=== PATIENT | female | born 1960 | race Caucasian/White ===

== ENCOUNTER 2017-12-10 12:33 | Emergency (ER) | payer MEDICARE, MEDICAID ==
[~2017-12-10] VITALS: Ht 162.6 cm; Wt 112.9 kg
[~2017-12-10 12:33] MED LIST: CEFD300C3 PO; FURO-61 PO; IPRA14.7 INH; LANS30CA56 PO; LEVO175T7 PO; LISI-643 PO; SULF1TAB49 PO
[2017-12-10 12:40] VITALS: BP 151/78
[2017-12-10 13:02] LABS: BASOPHILS # (AUTO) 0.1 X10'3 (0-0.2); BASOPHILS % (AUTO) 0.9 % (0-1); EOSINOPHILS # (AUTO) 0.2 X10'3 (0-0.9); HEMATOCRIT 40.8 % (35.0-45.0); HEMOGLOBIN 14.1 g/dl (12.0-16.0); LYMPHOCYTES # (AUTO) 1.6 X10'3 (1.1-4.8); LYMPHOCYTES % (AUTO) 25.3 % (21-51); MEAN CORPUSCULAR HEMOGLOBIN 30.1 PG (27.0-31.0); MEAN CORPUSCULAR HGB CONC 34.6 % (33.0-36.5); MEAN PLATELET VOLUME 7.8 FL (7.4-10.4); MONOCYTES # (AUTO) 0.3 X10'3 (0-0.9); MONOCYTES % (AUTO) 5.4 % (2-12); NEUTROPHILS # (AUTO) 4.2 X10'3 (1.8-7.7); NEUTROPHILS % (AUTO) 65.4 % (42-75); PLATELET COUNT 246 X10'3 (140-440); RED BLOOD COUNT 4.69 X10'6 (4.20-5.60); RED CELL DISTRIBUTION WIDTH 13.6 % (11.5-14.5); WHITE BLOOD COUNT 6.4 X10'3 (4.5-11.0)
[2017-12-10 13:12] LABS: PARTIAL THROMBOPLASTIN TIME 31 SECONDS (22-32)
[2017-12-10 13:19] LABS: ALANINE AMINOTRANSFERASE 21 U/L (12-78); ALBUMIN 4.1 G/DL (3.4-5.0); ALBUMIN/GLOBULIN RATIO 1.1 (1.1-1.5); ALKALINE PHOSPHATASE 57 IU/L (46-116); ANION GAP 8 (8-16); ASPARTATE AMINO TRANSFERASE 5 U/L (10-37); BILIRUBIN,TOTAL 0.3 MG/DL (0.1-1.0); BLOOD UREA NITROGEN 16 MG/DL (7-18); CALCIUM 9.7 MG/DL (8.5-10.1); CHLORIDE 103 MMOL/L (99-107); GLUCOSE 91 MG/DL (70-104); POTASSIUM 3.9 MMOL/L (3.5-5.1); SODIUM 141 MMOL/L (135-145); TOTAL CARBON DIOXIDE 30.2 MMOL/L (24-32); eGFR > 90 ML/MIN
== END 2017-12-10 14:59 | disposition left against medical advice (07) ==
LOC: ER 12:34
DX: R07.9 Chest pain, unspecified (principal); Z53.21 Procedure and treatment not carried out due to patient leaving prior to being seen by health care provider
CPT/HCPCS: 36415; 71045; 80053; 84484; 85025; 85610; 85730; 93005

== ENCOUNTER 2018-04-02 05:47 | Inpatient (IN) | payer MEDICARE, MEDICAID ==
[2018-03-28 10:45] LABS: BASOPHILS % (AUTO) 0.7 % (0-1); EOSINOPHILS # (AUTO) 0.2 X10'3 (0-0.9); EOSINOPHILS % (AUTO) 2.7 % (0-6); LYMPHOCYTES # (AUTO) 1.7 X10'3 (1.1-4.8); LYMPHOCYTES % (AUTO) 29.1 % (21-51); MEAN CORPUSCULAR HEMOGLOBIN 30.4 PG (27.0-31.0); MEAN CORPUSCULAR HGB CONC 34.3 % (33.0-36.5); MEAN CORPUSCULAR VOLUME 88.6 FL (78-98); MEAN PLATELET VOLUME 7.4 FL (7.4-10.4); MONOCYTES # (AUTO) 0.3 X10'3 (0-0.9); MONOCYTES % (AUTO) 5.7 % (2-12); NEUTROPHILS # (AUTO) 3.5 X10'3 (1.8-7.7); NEUTROPHILS % (AUTO) 61.8 % (42-75); PRE OP HEMATOCRIT 41.4 % (35.0-45.0); PRE OP HEMOGLOBIN 14.2 g/dL (12.0-16.0); PRE OP PLATELET COUNT 262 X10'3 (140-440); RED BLOOD COUNT 4.67 X10'6 (4.20-5.60); RED CELL DISTRIBUTION WIDTH 14.1 % (11.5-14.5)
[2018-03-28 10:49] LABS: COLOR,URINE Yellow (Yellow); GLUCOSE, URINE Negative (Neg); KETONES,URINE Negative (Neg); LEUKOCYTE ESTERASE ,URINE Negative (Neg); NITRITES, URINE Positive (Neg); OCCULT BLOOD,URINE Negative (Neg); PH,URINE 6.5 (4.8-8.0); PROTEIN,URINE Negative (Neg)
[2018-03-28 10:58] LABS: UA COLLECTION TYPE CLN CATCH MIDSTREAM
[2018-03-28 10:59] LABS: ALBUMIN 3.8 G/DL (3.4-5.0); ALBUMIN/GLOBULIN RATIO 1.1 (1.1-1.5); ALKALINE PHOSPHATASE 51 IU/L (46-116); BLOOD UREA NITROGEN 13 MG/DL (7-18); BUN/CREATININE RATIO 27.1 (6.6-38.0); CALCIUM 9.2 MG/DL (8.5-10.1); CHLORIDE 104 MMOL/L (99-107); CREATININE 0.48 MG/DL (0.40-0.90); PRE OP ALT 24 U/L (30-65); PRE OP ANION GAP 5 (8-16); PRE OP AST 16 U/L (10-37); PRE OP BILIRUB, TOTAL 0.3 MG/DL (0.0-1.0); PRE OP GLUCOSE 95 MG/DL (70-104); PRE OP SODIUM 142 MMOL/L (135-145); TOTAL CARBON DIOXIDE 32.8 MMOL/L (24-32); TOTAL PROTEIN 7.4 G/DL (6.4-8.2); eGFR > 90 ML/MIN
[2018-03-28 11:00] LABS: BACTERIA,URINE 4+ /HPF (Neg); CLARITY,URINE CLOUDY (Clear); MUCUS STRANDS MODERATE /LPF (Neg); RBC,URINE 0-2 /HPF (0-2); SQUAMOUS EPITHELIAL CELL,UR MODERATE /LPF (FEW); WBC,URINE 0-4 /HPF (0-4)
[2018-04-02] VITALS (29 sets, daily range): BP systolic 99–172; BP diastolic 54–104
[~2018-04-02] VITALS: Ht 162.6 cm; Wt 111.2 kg
[~2018-04-02 05:47] MED LIST changes: -CEFD300C3 PO; -IPRA14.7 INH; +LANS30CA37 PO; -LANS30CA56 PO; -SULF1TAB49 PO; +albuterol 2.5 MG/3 ML nebule NEB ONE; +ceFAZolin inj. 2,000 MG in normal saline 100ml IV soln 100 ML IV ONE; +famotidine 20mg tablet PO ONE
[2018-04-02] MEDS ORDERED: LISI-642 PO (06:19)
[2018-04-02] MEDS: ringers solution, lacted 1,000 ML IV SCH ×2 (06:31→16:09)
[2018-04-02] MEDS ORDERED: LIDOcaine 1% (10mg/ml) 2ml vial ONE (06:35)
[2018-04-02] MEDS ORDERED: iohexol 300 MG/1 ML 50ml polymer ONE (06:39)
[2018-04-02] MEDS ORDERED: rocuronium 10mg/ml inj IV ONE ×2 (06:54)
[2018-04-02] MEDS ORDERED: propofol inj 20 ML IV ONE ×2 (06:54→07:21)
[2018-04-02] MEDS ORDERED: ePHEDrine 50MG/ML INJ. ONE (06:56)
[2018-04-02] MEDS ORDERED: neostigmine methylsulfate 1 MG/ML 10ml vial ONE (07:15)
[2018-04-02] MEDS ORDERED: glycopyrrolate 0.2mg/ml inj ONE (07:15)
[2018-04-02] MEDS ORDERED: ondansetron/PF 4mg/2ml inj ONE (07:15)
[2018-04-02] MEDS ORDERED: sevoflurane 250ml liquid IH ONE (07:15)
[2018-04-02] MEDS ORDERED: fentaNYL /PF 50mcg/ml 5ml ampule ONE (07:17)
[2018-04-02] MEDS ORDERED: midazolam 2 mg/2 ml injection ONE (07:17)
[2018-04-02] MEDS ORDERED: dexamethasone sod phosphate 4mg/ml inj. ONE (07:24)
[2018-04-02] MEDS ORDERED: LIDOcaine 2% (20mg/ml) 5ml vial ONE (07:24)
[2018-04-02] MEDS: ceFOXitin 1 GM ADDVANTAGE BAG 1,000 MG in normal saline 100ml IV soln 100 ML IV SCH ×2 (08:00→19:17)
[2018-04-02] MEDS ORDERED: CADD PCA waste documentation MC PRN (08:00)
[2018-04-02] MEDS ORDERED: naloxone 0.4 mg/ml inj IV PRN (08:00)
[2018-04-02] MEDS: enoxaparin 40mg/0.4ml syringe SQ SCH (08:00)
[2018-04-02] MEDS ORDERED: hydrALAZINE 20mg/ml inj. IV PRN (08:10)
[2018-04-02] MEDS ORDERED: ondansetron/PF 4mg/2ml inj IV PRN (08:10)
[2018-04-02] MEDS ORDERED: HYDROmorphone inj. 0.5 MG/0.5 ML DISP.SYRIN IV PRN ×2 (08:10)
[2018-04-02] MEDS ORDERED: fentaNYL/PF 50MCG/1 ML 2ML syringe IV PRN (08:10)
[2018-04-02] MEDS ORDERED: proCHLORperazine 10 MG/2 ml inj IV PRN (08:10)
[2018-04-02] MEDS ORDERED: proMETHazine 25mg rectal suppository RC PRN (08:10)
[2018-04-02] MEDS ORDERED: labetalol 20mg/4ml (5mg/ml) syringe IV PRN (08:10)
[2018-04-02] MEDS ORDERED: ringers solution, lacted 1,000 ML IV ONE (08:10)
[2018-04-02] MEDS ORDERED: ceFOXitin 1000 MG inj ONE (08:23)
[2018-04-02] MEDS ORDERED: HYDROmorphone 1 mg/ml syringe ONE (08:34)
[2018-04-02] MEDS ORDERED: BUPIVAcaine/PF 2.5mg/ml (0.25%) 10ml vial IJ ONE (08:37)
[2018-04-02] MEDS: fentaNYL/PF 50MCG/1 ML 2ML syringe IV PRN ×2 (09:38→09:44)
[2018-04-02] MEDS ORDERED: pantoprazole 40mg Tablet.DR PO PRN (09:40)
[2018-04-02] MEDS ORDERED: acetaminophen 325mg tablet PO PRN (11:30)
[2018-04-02] MEDS ORDERED: acetaminophen 1,000mg/100ml IV 100 ML IV ONE (11:40)
[2018-04-02] MEDS ORDERED: traMADol 50MG tablet PO PRN (17:30)
[2018-04-02] MEDS: traMADol 50MG tablet PO PRN (19:17)
[2018-04-02] MEDS: diphenhydrAMINE 25mg capsule PO PRN (19:19)
[2018-04-03] MEDS: traMADol 50MG tablet PO PRN ×2 (00:47→13:25)
[2018-04-03] MEDS: acetaminophen 325mg tablet PO PRN ×3 (01:07→17:36)
[2018-04-03] MEDS: ondansetron/PF 4mg/2ml inj IV PRN ×2 (01:11→13:04)
[2018-04-03 04:00] VITALS: BP 157/75
[2018-04-03] MEDS: enoxaparin 40mg/0.4ml syringe SQ SCH (08:00)
[2018-04-03] MEDS: furosemide 20MG tablet PO SCH ×2 (08:00→10:30)
[2018-04-03] MEDS ORDERED: lisinopril 10 MG tablet PO SCH (08:00)
[2018-04-03] MEDS: levoTHYROXINE 175mcg tablet PO SCH (08:11)
[2018-04-03 08:18] VITALS: BP 144/77
[2018-04-03] MEDS ORDERED: ZESTRIL PO SCH ×2 (10:49)
[2018-04-03] MEDS: ZESTRIL PO SCH (11:08)
[2018-04-03 11:38] VITALS: BP 180/78
[2018-04-03 11:44] VITALS: BP 126/69
[2018-04-03] MEDS: diphenhydrAMINE 25mg capsule PO PRN (13:25)
[2018-04-03] MEDS: ringers solution, lacted 1,000 ML IV SCH (19:02)
[2018-04-03 20:00] VITALS: BP 130/61
[2018-04-04] VITALS: BP 131/64
[2018-04-04] MEDS: acetaminophen 325mg tablet PO PRN ×3 (01:21→13:58)
[2018-04-04] MEDS: diphenhydrAMINE 25mg capsule PO PRN ×2 (01:21→13:58)
[2018-04-04 06:56] VITALS: BP 146/62
[2018-04-04] MEDS: levoTHYROXINE 175mcg tablet PO SCH (08:01)
[2018-04-04] MEDS: furosemide 20MG tablet PO SCH (08:02)
[2018-04-04] MEDS: ZESTRIL PO SCH (08:03)
[2018-04-04] MEDS: enoxaparin 40mg/0.4ml syringe SQ SCH (08:03)
[2018-04-04] MEDS: ringers solution, lacted 1,000 ML IV SCH (11:14)
[2018-04-04 11:33] VITALS: BP 161/77
[2018-04-04] MEDS: ondansetron/PF 4mg/2ml inj IV PRN (17:16)
== END 2018-04-04 19:14 | disposition home or self-care (01) | DRG 330 ==
LOC: PAS IN 05:47 → EDSTATUS 07:30 → SUR 3N 08:57 → EDSTATUS 10:15 → SUR 3N 04-03 11:31
PROVIDERS: ADMIT Surgery; ATTEND Surgery
PROC: 0T788DZ Dilation of Bilateral Ureters with Intraluminal Device, Via Natural or Artificial Opening Endoscopic (ICD-10-PCS; 2018-04-02)
PROC: 0T9B80Z Drainage of Bladder with Drainage Device, Via Natural or Artificial Opening Endoscopic (ICD-10-PCS; 2018-04-02)
PROC: BT161ZZ Fluoroscopy of Right Ureter using Low Osmolar Contrast (ICD-10-PCS; 2018-04-02)
PROC: BT171ZZ Fluoroscopy of Left Ureter using Low Osmolar Contrast (ICD-10-PCS; 2018-04-02)
PROC: 0DBN4ZZ Excision of Sigmoid Colon, Percutaneous Endoscopic Approach (ICD-10-PCS; principal; 2018-04-02 07:15)
PROC: 0WQF4ZZ Repair Abdominal Wall, Percutaneous Endoscopic Approach (ICD-10-PCS; 2018-04-02 07:15)
DX: K57.32 Diverticulitis of large intestine without perforation or abscess without bleeding (principal); Z68.41 Body mass index [BMI] 40.0-44.9, adult; I11.0 Hypertensive heart disease with heart failure; I50.9 Heart failure, unspecified; E03.9 Hypothyroidism, unspecified; G47.30 Sleep apnea, unspecified; K42.9 Umbilical hernia without obstruction or gangrene; K21.9 Gastro-esophageal reflux disease without esophagitis; N73.6 Female pelvic peritoneal adhesions (postinfective); Z88.5 Allergy status to narcotic agent; Z88.8 Allergy status to other drugs, medicaments and biological substances; Z90.49 Acquired absence of other specified parts of digestive tract; E66.9 Obesity, unspecified
CPT/HCPCS: 36415; 71046; 76000; 80053; 81001; 85025; 86885; 86900; 86901; 86920; 87070; 87077; 87088; 87186; 88307; A4402; A6255; A6449; A7000; C1758; C1769; J0131; J0690; J0694; J1100; J1170; J1650; J2001; J2250; J2405; J2704; J2710; J3010; J3490; J7030; J7120; Q0163; Q9967

== ENCOUNTER 2018-06-18 07:24 | Emergency (ER) | payer MEDICARE, MEDICAID ==
[~2018-06-18] VITALS: Ht 565.3 cm; Wt 107.3 kg
[~2018-06-18 07:24] MED LIST changes: +LISI-642 PO; -LISI-643 PO; -albuterol 2.5 MG/3 ML nebule NEB ONE; -ceFAZolin inj. 2,000 MG in normal saline 100ml IV soln 100 ML IV ONE; -famotidine 20mg tablet PO ONE
[2018-06-18] MEDS ORDERED: acetaminophen 325mg tablet PO ONE (07:45)
[2018-06-18] MEDS ORDERED: pantoprazole 40 MG vial IV ONE (07:45)
[2018-06-18] MEDS ORDERED: dicyclomine 10 MG capsule PO ONE (07:45)
[2018-06-18] MEDS ORDERED: ondansetron/PF 4mg/2ml inj IV ONE (07:45)
[2018-06-18] MEDS ORDERED: normal saline 1000ML IV soln IVB ONE ×2 (07:45)
[2018-06-18] MEDS ORDERED: loperamide 2mg capsule PO ONE (07:45)
[2018-06-18] MEDS ORDERED: LOPE2CAP PO (07:46)
[2018-06-18] MEDS ORDERED: DICY10CA88 PO (07:46)
[2018-06-18] MEDS ORDERED: PANT-47 PO (07:46)
[2018-06-18] MEDS ORDERED: ONDA8TAB9 PO (07:46)
[2018-06-18 08:56] VITALS: BP 128/70
== END 2018-06-18 08:57 | disposition home or self-care (01) ==
LOC: ER 07:24
DX: R19.7 Diarrhea, unspecified (principal); R10.84 Generalized abdominal pain; K21.9 Gastro-esophageal reflux disease without esophagitis; Z90.49 Acquired absence of other specified parts of digestive tract; Z88.5 Allergy status to narcotic agent; Z88.1 Allergy status to other antibiotic agents; Z88.8 Allergy status to other drugs, medicaments and biological substances; Z79.899 Other long term (current) drug therapy
CPT/HCPCS: 96361; 96374; 96375; 99285; C9113; J2405; J7030; 99284

== ENCOUNTER 2020-11-11 18:56 | Emergency (ER) | payer MEDICARE, MEDICAID ==
[~2020-11-11] VITALS: Ht 162.6 cm; Wt 110.9 kg
[~2020-11-11 18:56] MED LIST changes: +IPRA4AER IH; -LANS30CA37 PO; -LISI-642 PO; +LISI1TAB32 PO
[2020-11-11 19:24] LABS: BASOPHILS # (AUTO) 0.1 X10'3 (0-0.2); BASOPHILS % (AUTO) 1.7 % (0-1); EOSINOPHILS # (AUTO) 0.2 X10'3 (0-0.9); EOSINOPHILS % (AUTO) 2.4 % (0-6); HEMATOCRIT 42.2 % (35.0-45.0); HEMOGLOBIN 14.5 g/dl (12.0-16.0); LYMPHOCYTES # (AUTO) 1.8 X10'3 (1.1-4.8); LYMPHOCYTES % (AUTO) 26.3 % (21-51); MEAN CORPUSCULAR HEMOGLOBIN 30.4 PG (27.0-31.0); MEAN CORPUSCULAR HGB CONC 34.3 g/dL (33.0-36.5); MEAN CORPUSCULAR VOLUME 88.4 FL (78-98); MEAN PLATELET VOLUME 7.3 FL (7.4-10.4); MONOCYTES # (AUTO) 0.5 X10'3 (0-0.9); MONOCYTES % (AUTO) 7.2 % (2-12); NEUTROPHILS # (AUTO) 4.3 X10'3 (1.8-7.7); NEUTROPHILS % (AUTO) 62.4 % (42-75); PLATELET COUNT 231 X10'3 (140-440); RED BLOOD COUNT 4.77 X10'6 (4.20-5.60); RED CELL DISTRIBUTION WIDTH 13.8 % (11.5-14.5)
[2020-11-11 19:37] LABS: PARTIAL THROMBOPLASTIN TIME 30 SECONDS (22-32)
[2020-11-11 19:39] LABS: ALANINE AMINOTRANSFERASE 31 U/L (12-78); ALBUMIN 3.8 G/DL (3.4-5.0); ALKALINE PHOSPHATASE 59 IU/L (46-116); ANION GAP 10 (8-16); ASPARTATE AMINO TRANSFERASE 20 U/L (10-37); BILIRUBIN,TOTAL 0.3 MG/DL (0.1-1.0); BLOOD UREA NITROGEN 17 MG/DL (7-18); BUN/CREATININE RATIO 30.9 (6.6-38.0); CALCIUM 9.4 MG/DL (8.5-10.1); CHLORIDE 100 MMOL/L (99-107); CREATININE 0.55 MG/DL (0.40-0.90); GLUCOSE 87 MG/DL (70-104); POTASSIUM 3.5 MMOL/L (3.5-5.1); SODIUM 138 MMOL/L (135-145); TOTAL CARBON DIOXIDE 28.4 MMOL/L (24-32); TOTAL PROTEIN 7.5 G/DL (6.4-8.2); eGFR > 90 ML/MIN
[2020-11-11 19:42] LABS: TROPONIN I < 0.04 NG/ML (0.0-0.05)
[2020-11-11 21:17] VITALS: BP 166/97
== END 2020-11-11 21:18 | disposition home or self-care (01) ==
LOC: ER 18:56
DX: R44.1 Visual hallucinations (principal); R51.9 Headache, unspecified; H53.8 Other visual disturbances; R43.8 Other disturbances of smell and taste; R19.7 Diarrhea, unspecified; K21.9 Gastro-esophageal reflux disease without esophagitis; Z90.49 Acquired absence of other specified parts of digestive tract; Z88.1 Allergy status to other antibiotic agents; Z88.5 Allergy status to narcotic agent; Z88.8 Allergy status to other drugs, medicaments and biological substances; Z79.899 Other long term (current) drug therapy
CPT/HCPCS: 36415; 70450; 71045; 80053; 84484; 85025; 85610; 85651; 85730; 93005; 99285

== ENCOUNTER 2020-12-13 13:20 | Outpatient (CLI) | payer MEDICARE, MEDICAID | END 2020-12-13 23:59 | disposition home or self-care (01) | LOC: 64 CT 13:20 | PROVIDERS: ATTEND Surgery | DX: K43.9 Ventral hernia without obstruction or gangrene (principal); K42.9 Umbilical hernia without obstruction or gangrene; K57.30 Diverticulosis of large intestine without perforation or abscess without bleeding; R16.0 Hepatomegaly, not elsewhere classified; I70.90 Unspecified atherosclerosis | CPT/HCPCS: 74176 ==

== ENCOUNTER 2020-12-29 17:09 | Emergency (ER) | payer MEDICARE, MEDICAID ==
[~2020-12-29] VITALS: Ht 162.6 cm; Wt 112.3 kg
[2020-12-29] MEDS ORDERED: aspirin 81mg tab.chew PO ONE (17:25)
[2020-12-29 17:52] LABS: BASOPHILS # (AUTO) 0.1 X10'3 (0-0.2); BASOPHILS % (AUTO) 0.7 % (0-1); EOSINOPHILS # (AUTO) 0.2 X10'3 (0-0.9); EOSINOPHILS % (AUTO) 2.3 % (0-6); HEMATOCRIT 43.3 % (35.0-45.0); HEMOGLOBIN 14.6 g/dl (12.0-16.0); LYMPHOCYTES % (AUTO) 21.5 % (21-51); MEAN CORPUSCULAR HGB CONC 33.6 g/dL (33.0-36.5); MEAN CORPUSCULAR VOLUME 89.2 FL (78-98); MEAN PLATELET VOLUME 7.4 FL (7.4-10.4); MONOCYTES # (AUTO) 0.5 X10'3 (0-0.9); MONOCYTES % (AUTO) 5.1 % (2-12); NEUTROPHILS # (AUTO) 6.7 X10'3 (1.8-7.7); NEUTROPHILS % (AUTO) 70.4 % (42-75); PLATELET COUNT 325 X10'3 (140-440); RED BLOOD COUNT 4.85 X10'6 (4.20-5.60); RED CELL DISTRIBUTION WIDTH 14.2 % (11.5-14.5); WHITE BLOOD COUNT 9.5 X10'3 (4.5-11.0)
[2020-12-29 17:58] LABS: ALANINE AMINOTRANSFERASE 31 U/L (12-78); ALKALINE PHOSPHATASE 63 IU/L (46-116); ANION GAP 9 (8-16); ASPARTATE AMINO TRANSFERASE 16 U/L (10-37); BILIRUBIN,TOTAL 0.2 MG/DL (0.1-1.0); BLOOD UREA NITROGEN 20 MG/DL (7-18); BUN/CREATININE RATIO 31.3 (6.6-38.0); CALCIUM 9.8 MG/DL (8.5-10.1); CHLORIDE 102 MMOL/L (99-107); CREATININE 0.64 MG/DL (0.40-0.90); GLUCOSE 123 MG/DL (70-104); POTASSIUM 3.6 MMOL/L (3.5-5.1); SODIUM 141 MMOL/L (135-145); TOTAL CARBON DIOXIDE 30.2 MMOL/L (24-32); TOTAL PROTEIN 7.9 G/DL (6.4-8.2); eGFR > 90 ML/MIN
[2020-12-29 18:06] LABS: MAGNESIUM 2.2 MG/DL (1.5-2.4)
[2020-12-29 18:35] VITALS: BP 126/76
== END 2020-12-29 19:14 | disposition home or self-care (01) ==
LOC: ER 17:10
DX: R07.89 Other chest pain (principal); I10 Essential (primary) hypertension; K21.9 Gastro-esophageal reflux disease without esophagitis; E03.9 Hypothyroidism, unspecified; F17.200 Nicotine dependence, unspecified, uncomplicated; Z90.49 Acquired absence of other specified parts of digestive tract; Z88.1 Allergy status to other antibiotic agents; Z88.5 Allergy status to narcotic agent; Z88.8 Allergy status to other drugs, medicaments and biological substances; Z79.899 Other long term (current) drug therapy
CPT/HCPCS: 36415; 71045; 80053; 83735; 83880; 84484; 85025; 93005; 99285

== ENCOUNTER 2021-02-09 07:13 | Emergency (ER) | payer MEDICARE, MEDICAID ==
[~2021-02-09] VITALS: Ht 162.6 cm; Wt 111.4 kg
[2021-02-09 07:14] VITALS: BP 169/74
[2021-02-09] MEDS ORDERED: fentaNYL/PF 50MCG/1 ML 2ML syringe IM ONE (07:20)
[2021-02-09] MEDS ORDERED: ondansetron 4mg rapidly disintigrating tab PO ONE (07:20)
[2021-02-09] MEDS ORDERED: oxybutynin 5mg tablet PO ONE ×2 (08:03→08:05)
[2021-02-09] MEDS ORDERED: oxyCODONE IR 5mg (immed. release) tablet PO ONE (08:05)
--- NOTE | 2021-02-09 08:42 | NUR ---
PUMPER BREWERY AT THE BEDSIDE TO APPLY LEFT SHOULDER IMMOBILIZER/SLING.
[2021-02-09] MEDS ORDERED: OXYC-145 PO (09:03)
[2021-02-09] MEDS ORDERED: ONDA4TAB12 PO (09:03)
--- NOTE | 2021-02-09 09:37 | NUR ---
CASE MANAGEMENT PAGE REGARDING PT'S REQUEST FOR AN ELECTRIC WHEEL CHAIR. BOBO FROM CASE MANAGEMENT CALLED, STATED THAT AN ELECTRIC WHEELCHAIR REQUIRES AN EXTENSIVE WORKUP AND PT NEEDS TO F/U WITH PMD FOR SUCH A REQUEST. DR STEWART NOTIFIED
== END 2021-02-09 10:30 | disposition home or self-care (01) ==
LOC: ER 07:14
DX: S42.292A Other displaced fracture of upper end of left humerus, initial encounter for closed fracture (principal); M25.512 Pain in left shoulder; I11.0 Hypertensive heart disease with heart failure; I50.9 Heart failure, unspecified; K21.9 Gastro-esophageal reflux disease without esophagitis; E03.9 Hypothyroidism, unspecified; Z90.49 Acquired absence of other specified parts of digestive tract; Z98.890 Other specified postprocedural states; Z88.5 Allergy status to narcotic agent; Z88.1 Allergy status to other antibiotic agents; Z88.6 Allergy status to analgesic agent; Z88.8 Allergy status to other drugs, medicaments and biological substances; Z79.899 Other long term (current) drug therapy; W19.XXXA Unspecified fall, initial encounter; Y93.89 Activity, other specified; Y92.89 Other specified places as the place of occurrence of the external cause; Y99.8 Other external cause status
CPT/HCPCS: 73030; 96372; 99284; J3010

== ENCOUNTER 2021-05-27 12:18 | Emergency (ER) | payer MEDICARE, MEDICAID ==
[~2021-05-27] VITALS: Ht 162.6 cm; Wt 114.1 kg
[~2021-05-27 12:18] MED LIST changes: +ONDA4TAB12 PO; +OXYC-145 PO
[2021-05-27] MEDS ORDERED: DOXY100C76 PO (13:14)
[2021-05-27 13:30] VITALS: BP 161/93
== END 2021-05-27 13:32 | disposition home or self-care (01) ==
LOC: ER 12:18
DX: B00.9 Herpesviral infection, unspecified (principal); I11.0 Hypertensive heart disease with heart failure; I50.9 Heart failure, unspecified; K21.9 Gastro-esophageal reflux disease without esophagitis; E07.9 Disorder of thyroid, unspecified; Z90.49 Acquired absence of other specified parts of digestive tract; Z98.890 Other specified postprocedural states; Z88.1 Allergy status to other antibiotic agents; Z88.8 Allergy status to other drugs, medicaments and biological substances; Z91.048 Other nonmedicinal substance allergy status; Z79.2 Long term (current) use of antibiotics; Z79.899 Other long term (current) drug therapy
CPT/HCPCS: 99283

== ENCOUNTER 2022-01-17 05:58 | Day surgery (SDC) | payer MEDICARE, MEDICAID ==
[2022-01-11 12:29] LABS: BASOPHILS # (AUTO) 0.1 X10'3 (0-0.2); BASOPHILS % (AUTO) 1.2 % (0-1); EOSINOPHILS # (AUTO) 0.2 X10'3 (0-0.9); EOSINOPHILS % (AUTO) 4.2 % (0-6); LYMPHOCYTES # (AUTO) 2.1 X10'3 (1.1-4.8); LYMPHOCYTES % (AUTO) 37.3 % (21-51); MEAN CORPUSCULAR HEMOGLOBIN 30.2 PG (27.0-31.0); MEAN CORPUSCULAR HGB CONC 33.6 g/dL (33.0-36.5); MEAN CORPUSCULAR VOLUME 89.9 FL (78-98); MEAN PLATELET VOLUME 8.2 FL (7.4-10.4); MONOCYTES # (AUTO) 0.4 X10'3 (0-0.9); MONOCYTES % (AUTO) 7.8 % (2-12); NEUTROPHILS # (AUTO) 2.8 X10'3 (1.8-7.7); NEUTROPHILS % (AUTO) 49.5 % (42-75); PRE OP HEMATOCRIT 42.2 % (35.0-45.0); PRE OP HEMOGLOBIN 14.2 g/dL (12.0-16.0); PRE OP PLATELET COUNT 264 X10'3 (140-440); RED CELL DISTRIBUTION WIDTH 13.8 % (11.5-14.5)
[2022-01-11 12:38] LABS: CLARITY,URINE SLIGHTLY CLOUDY (Clear); COLOR,URINE YELLOW (Yellow); GLUCOSE, URINE NEGATIVE (Neg); KETONES,URINE NEGATIVE (Neg); LEUKOCYTE ESTERASE ,URINE NEGATIVE (Neg); NITRITES, URINE POSITIVE (Neg); OCCULT BLOOD,URINE NEGATIVE (Neg); PROTEIN,URINE NEGATIVE (Neg); UROBILINOGEN,URINE 0.2 E.U/dL (0.2-1.0)
[2022-01-11 12:43] LABS: ALBUMIN 3.8 G/DL (3.4-5.0); ALBUMIN/GLOBULIN RATIO 0.9 (1.1-1.5); ALKALINE PHOSPHATASE 51 IU/L (46-116); BLOOD UREA NITROGEN 11 MG/DL (7-18); BUN/CREATININE RATIO 23.9 (6.6-38.0); CALCIUM 9.6 MG/DL (8.5-10.1); CHLORIDE 102 MMOL/L (99-107); CREATININE 0.46 MG/DL (0.40-0.90); PRE OP ALT 16 U/L (30-65); PRE OP ANION GAP 8 (8-16); PRE OP AST 15 U/L (10-37); PRE OP BILIRUB, TOTAL 0.4 MG/DL (0.0-1.0); PRE OP GLUCOSE 89 MG/DL (70-104); PRE OP SODIUM 141 MMOL/L (135-145); TOTAL CARBON DIOXIDE 31.4 MMOL/L (24-32); eGFR > 90 ML/MIN
[2022-01-11 12:44] LABS: UA COLLECTION TYPE CLN CATCH MIDSTREAM
[2022-01-11 12:57] LABS: RBC,URINE 0-2 /HPF (0-2); WBC,URINE 0-4 /HPF (0-4)
[2022-01-11 12:58] LABS: BACTERIA,URINE 4+ /HPF (Neg); SQUAMOUS EPITHELIAL CELL,UR MODERATE /LPF (FEW)
[2022-01-17] VITALS (8 sets, daily range): BP systolic 110–176; BP diastolic 65–82
[~2022-01-17] VITALS: Ht 162.6 cm; Wt 99.8 kg
[~2022-01-17 05:58] MED LIST changes: +ACET-1008 PO; +BIO COMPLETE PO; +DICY10CA88 PO; +LEVO150T8 PO; -LEVO175T7 PO; +LISI-643 PO; -LISI1TAB32 PO; +LISI1TAB49 PO; +MULT-1085 PO; +NAPR220T67 PO; -ONDA4TAB12 PO; -OXYC-145 PO; +PSYL575P22 PO; +[UNRECOGNIZED DRUG - OTHER] PO; +albuterol 2.5 MG/3 ML nebule NEB ONE; +cefazolin/dext.iso 2gm/50ml IV ONE; +famotidine 20mg tablet PO ONE; +ringers solution, lacted 1,000 ML IV SCH
[2022-01-17] MEDS ORDERED: BUPIVAcaine 0.5% inj/PF 30 ML ONE (06:42)
[2022-01-17] MEDS ORDERED: sevoflurane 250ml liquid IH ONE (08:52)
[2022-01-17] MEDS ORDERED: BUPIVACAINE liposomal/PF 13.3 MG/ML vial IM ONE (08:58)
[2022-01-17] MEDS ORDERED: midazolam 1 mg/ML 2ml injection ONE (08:58)
[2022-01-17] MEDS ORDERED: fentaNYL /PF 50mcg/ml 5ml ampule ONE (08:59)
[2022-01-17] MEDS ORDERED: rocuronium 10mg/ml inj IV ONE (09:25)
[2022-01-17] MEDS ORDERED: LIDOcaine 2% (20mg/ml) 5ml vial ONE (09:25)
[2022-01-17] MEDS ORDERED: dexamethasone sod phosphate 4mg/ml inj. ONE (09:25)
[2022-01-17] MEDS ORDERED: phenylephrine 10mg/ml inj. ONE (09:25)
[2022-01-17] MEDS ORDERED: propofol inj 20 ML IV ONE (09:26)
[2022-01-17] MEDS ORDERED: ondansetron/PF 4mg/2ml inj ONE (09:26)
[2022-01-17] MEDS ORDERED: ePHEDrine 50MG/ML INJ. ONE (09:26)
[2022-01-17] MEDS ORDERED: 0.9 % SODIUM CHLORIDE 10 ML VIAL ONE (09:26)
[2022-01-17] MEDS ORDERED: sugammadex 200mg/2ml injection IV ONE (11:03)
--- NOTE | 2022-01-17 11:16 | NUR ---
Received from OR via JENNA, 20G PIV TO LEFT FA, LAP STTESX3 TO ABD COVERED WITH 2X2S AND MEDIPORE TAPE ALL CLAUDIO CDI , accompanied by Anesthesiologist DR MENDEZ and BRIAN GUZMAN report given by Anesthesiolgist. Addendum: 01/17/22 at 1139 by Sophie Franklin RN Amended: Links added.
[2022-01-17] MEDS ORDERED: hydrALAZINE 20mg/ml inj. IV PRN (11:35)
[2022-01-17] MEDS ORDERED: acetaminophen 1,000mg/100ml IV 100 ML IV PRN (11:35)
[2022-01-17] MEDS ORDERED: proCHLORperazine 10 MG/2 ml inj IV PRN (11:35)
[2022-01-17] MEDS ORDERED: ondansetron/PF 4mg/2ml inj IV PRN (11:35)
[2022-01-17] MEDS ORDERED: fentaNYL/PF 50MCG/1 ML 2ML syringe IV PRN ×2 (11:35)
[2022-01-17] MEDS ORDERED: ketorolac trometh. 30mg/ml inj. IV ONE (11:35)
[2022-01-17] MEDS ORDERED: ringers solution, lacted 1,000 ML IV SCH (11:35)
[2022-01-17] MEDS ORDERED: HYDROmorphone/PF 0.2 MG/ML SYRINGE IV PRN ×2 (11:35)
[2022-01-17] MEDS ORDERED: labetalol 20mg/4ml (5mg/ml) syringe IV PRN (11:35)
== END 2022-01-17 12:16 | disposition home or self-care (01) ==
LOC: PAS 05:58
PROVIDERS: ATTEND Surgery
DX: K43.2 Incisional hernia without obstruction or gangrene (principal); E03.9 Hypothyroidism, unspecified; J44.9 Chronic obstructive pulmonary disease, unspecified; I11.0 Hypertensive heart disease with heart failure; I50.9 Heart failure, unspecified; E66.9 Obesity, unspecified; Z68.37 Body mass index [BMI] 37.0-37.9, adult; F17.210 Nicotine dependence, cigarettes, uncomplicated; M19.90 Unspecified osteoarthritis, unspecified site; I25.10 Atherosclerotic heart disease of native coronary artery without angina pectoris; Z87.01 Personal history of pneumonia (recurrent); Z20.822 Contact with and (suspected) exposure to COVID-19; Z79.899 Other long term (current) drug therapy; Z98.890 Other specified postprocedural states; Z90.49 Acquired absence of other specified parts of digestive tract; Z88.8 Allergy status to other drugs, medicaments and biological substances; Z88.5 Allergy status to narcotic agent; Z91.09 Other allergy status, other than to drugs and biological substances; Z80.1 Family history of malignant neoplasm of trachea, bronchus and lung; Z82.49 Family history of ischemic heart disease and other diseases of the circulatory system
CPT/HCPCS: 36415; 49654; 64488; 71046; 80053; 81001; 82948; 85025; 87077; 87088; 87186; 93005; C1713; C1781; C9290; J0690; J1100; J2250; J2370; J2405; J2704; J3010; J3490; J7030; J7120; S0020; U0003; U0005; Z7506; Z7508; Z7512; A4215; A4618; A7000

== ENCOUNTER 2022-01-30 22:37 | Emergency (ER) | payer MEDICARE, MEDICAID ==
[~2022-01-30] VITALS: Ht 162.6 cm; Wt 100.0 kg
[~2022-01-30 22:37] MED LIST changes: -albuterol 2.5 MG/3 ML nebule NEB ONE; -cefazolin/dext.iso 2gm/50ml IV ONE; -famotidine 20mg tablet PO ONE; -ringers solution, lacted 1,000 ML IV SCH
[2022-01-30 23:26] LABS: URINE HCG NEGATIVE (NEG)
[2022-01-30 23:27] LABS: CLARITY,URINE CLEAR (Clear); GLUCOSE, URINE NEGATIVE (Neg); KETONES,URINE NEGATIVE (Neg); LEUKOCYTE ESTERASE ,URINE TRACE (Neg); NITRITES, URINE NEGATIVE (Neg); OCCULT BLOOD,URINE NEGATIVE (Neg); PH,URINE 6.5 (4.8-8.0); PROTEIN,URINE NEGATIVE (Neg); UROBILINOGEN,URINE 0.2 E.U/dL (0.2-1.0)
[2022-01-30 23:29] LABS: COLOR,URINE STRAW (Yellow); UA COLLECTION TYPE CLN CATCH MIDSTREAM
[2022-01-30 23:30] LABS: BASOPHILS # (AUTO) 0.1 X10'3 (0-0.2); BASOPHILS % (AUTO) 0.9 % (0-1); EOSINOPHILS # (AUTO) 0.6 X10'3 (0-0.9); EOSINOPHILS % (AUTO) 6.3 % (0-6); HEMATOCRIT 41.1 % (35.0-45.0); HEMOGLOBIN 13.8 g/dl (12.0-16.0); LYMPHOCYTES # (AUTO) 2.8 X10'3 (1.1-4.8); MEAN CORPUSCULAR HEMOGLOBIN 29.6 PG (27.0-31.0); MEAN CORPUSCULAR HGB CONC 33.6 g/dL (33.0-36.5); MEAN CORPUSCULAR VOLUME 88.1 FL (78-98); MEAN PLATELET VOLUME 7.5 FL (7.4-10.4); MONOCYTES # (AUTO) 0.5 X10'3 (0-0.9); MONOCYTES % (AUTO) 5.7 % (2-12); NEUTROPHILS # (AUTO) 4.8 X10'3 (1.8-7.7); NEUTROPHILS % (AUTO) 55.1 % (42-75); PLATELET COUNT 346 X10'3 (140-440); RED BLOOD COUNT 4.66 X10'6 (4.20-5.60); RED CELL DISTRIBUTION WIDTH 13.5 % (11.5-14.5); WHITE BLOOD COUNT 8.7 X10'3 (4.5-11.0)
[2022-01-30 23:36] LABS: BACTERIA,URINE FEW /HPF (Neg); MUCUS STRANDS FEW /LPF (Neg); RBC,URINE 0-2 /HPF (0-2); SQUAMOUS EPITHELIAL CELL,UR FEW /LPF (FEW); WBC,URINE 0-4 /HPF (0-4)
[2022-01-30 23:38] LABS: ALANINE AMINOTRANSFERASE 21 U/L (12-78); ALBUMIN 3.8 G/DL (3.4-5.0); ALKALINE PHOSPHATASE 66 IU/L (46-116); ANION GAP 10 (8-16); ASPARTATE AMINO TRANSFERASE 12 U/L (10-37); BILIRUBIN,TOTAL 0.3 MG/DL (0.1-1.0); BLOOD UREA NITROGEN 16 MG/DL (7-18); BUN/CREATININE RATIO 29.1 (6.6-38.0); CALCIUM 9.5 MG/DL (8.5-10.1); CHLORIDE 99 MMOL/L (99-107); CREATININE 0.55 MG/DL (0.40-0.90); GLUCOSE 105 MG/DL (70-104); LIPASE 90 U/L (73-393); POTASSIUM 4.1 MMOL/L (3.5-5.1); SODIUM 138 MMOL/L (135-145); TOTAL CARBON DIOXIDE 28.7 MMOL/L (24-32); TOTAL PROTEIN 7.5 G/DL (6.4-8.2); eGFR > 90 ML/MIN
[2022-01-30 23:56] VITALS: BP 127/68
== END 2022-01-31 | disposition home or self-care (01) ==
LOC: ER 22:38
DX: G89.18 Other acute postprocedural pain (principal); R10.9 Unspecified abdominal pain; I11.0 Hypertensive heart disease with heart failure; I50.9 Heart failure, unspecified; K21.9 Gastro-esophageal reflux disease without esophagitis; E03.9 Hypothyroidism, unspecified; Z90.49 Acquired absence of other specified parts of digestive tract; Z98.890 Other specified postprocedural states; Z88.1 Allergy status to other antibiotic agents; Z88.5 Allergy status to narcotic agent; Z88.6 Allergy status to analgesic agent; Z88.8 Allergy status to other drugs, medicaments and biological substances; Z79.899 Other long term (current) drug therapy
CPT/HCPCS: 36415; 80053; 81001; 81025; 83690; 85025; 87088; 99284

== ENCOUNTER 2022-02-01 12:02 | Outpatient (CLI) | payer MEDICARE, MEDICAID | END 2022-02-01 23:59 | disposition home or self-care (01) | LOC: RAD 12:02 | PROVIDERS: ATTEND Surgery | DX: K43.9 Ventral hernia without obstruction or gangrene (principal); K42.9 Umbilical hernia without obstruction or gangrene; K57.30 Diverticulosis of large intestine without perforation or abscess without bleeding; L03.818 Cellulitis of other sites; M47.819 Spondylosis without myelopathy or radiculopathy, site unspecified; J98.11 Atelectasis; I25.10 Atherosclerotic heart disease of native coronary artery without angina pectoris; Z90.49 Acquired absence of other specified parts of digestive tract; Z98.890 Other specified postprocedural states | CPT/HCPCS: 74176 ==

== ENCOUNTER 2022-10-10 10:44 | Emergency (ER) | payer MEDICARE, MEDICAID ==
[~2022-10-10] VITALS: Ht 162.6 cm; Wt 100.0 kg
[2022-10-10 10:51] VITALS: BP 161/71
[2022-10-10 11:09] LABS: BASOPHILS % (AUTO) 0.7 % (0-1); EOSINOPHILS # (AUTO) 0.2 X10'3 (0-0.9); EOSINOPHILS % (AUTO) 2.9 % (0-6); HEMATOCRIT 42.4 % (35.0-45.0); HEMOGLOBIN 14.2 g/dl (12.0-16.0); LYMPHOCYTES % (AUTO) 27.7 % (21-51); MEAN CORPUSCULAR HEMOGLOBIN 30.1 PG (27.0-31.0); MEAN CORPUSCULAR HGB CONC 33.5 g/dL (33.0-36.5); MEAN CORPUSCULAR VOLUME 89.8 FL (78-98); MEAN PLATELET VOLUME 7.8 FL (7.4-10.4); MONOCYTES # (AUTO) 0.4 X10'3 (0-0.9); MONOCYTES % (AUTO) 5.6 % (2-12); NEUTROPHILS # (AUTO) 4.6 X10'3 (1.8-7.7); NEUTROPHILS % (AUTO) 63.1 % (42-75); PLATELET COUNT 240 X10'3 (140-440); RED BLOOD COUNT 4.72 X10'6 (4.20-5.60); WHITE BLOOD COUNT 7.4 X10'3 (4.5-11.0)
[2022-10-10 11:41] LABS: ALANINE AMINOTRANSFERASE 19 U/L (12-78); ALBUMIN 3.7 G/DL (3.4-5.0); ALBUMIN/GLOBULIN RATIO 1.1 (1.1-1.5); ALKALINE PHOSPHATASE 51 IU/L (46-116); ASPARTATE AMINO TRANSFERASE 17 U/L (10-37); BILIRUBIN,TOTAL 0.2 MG/DL (0.1-1.0); BLOOD UREA NITROGEN 16 MG/DL (7-18); BUN/CREATININE RATIO 30.2 (6.6-38.0); CALCIUM 9.1 MG/DL (8.5-10.1); CREATININE 0.53 MG/DL (0.40-0.90); GLUCOSE 109 MG/DL (70-104); TOTAL PROTEIN 7.2 G/DL (6.4-8.2); eGFR > 90 ML/MIN
[2022-10-10 11:56] LABS: ANION GAP 9 (8-16); CHLORIDE 101 MMOL/L (99-107); POTASSIUM 3.9 MMOL/L (3.5-5.1); SODIUM 139 MMOL/L (135-145); TOTAL CARBON DIOXIDE 29.2 MMOL/L (24-32)
== END 2022-10-10 13:06 | disposition left against medical advice (07) ==
LOC: ER 10:45
DX: I49.9 Cardiac arrhythmia, unspecified (principal); R51.9 Headache, unspecified; Z53.21 Procedure and treatment not carried out due to patient leaving prior to being seen by health care provider
CPT/HCPCS: 36415; 80053; 83735; 83880; 84484; 85025

== ENCOUNTER 2022-11-01 18:17 | Emergency (ER) | payer MEDICARE, MEDICAID ==
[~2022-11-01] VITALS: Ht 162.6 cm; Wt 102.3 kg
[2022-11-01] MEDS ORDERED: normal saline 1000ML IV soln IV ONE (18:50)
[2022-11-01 19:49] LABS: BASOPHILS % (AUTO) 0.6 % (0-1); EOSINOPHILS # (AUTO) 0.3 X10'3 (0-0.9); EOSINOPHILS % (AUTO) 3.5 % (0-6); HEMATOCRIT 39.9 % (35.0-45.0); HEMOGLOBIN 13.5 g/dl (12.0-16.0); LYMPHOCYTES # (AUTO) 2.4 X10'3 (1.1-4.8); MEAN CORPUSCULAR HEMOGLOBIN 30.3 PG (27.0-31.0); MEAN CORPUSCULAR VOLUME 89.2 FL (78-98); MEAN PLATELET VOLUME 7.3 FL (7.4-10.4); MONOCYTES # (AUTO) 0.4 X10'3 (0-0.9); MONOCYTES % (AUTO) 6.1 % (2-12); NEUTROPHILS # (AUTO) 4.1 X10'3 (1.8-7.7); NEUTROPHILS % (AUTO) 56.8 % (42-75); PLATELET COUNT 233 X10'3 (140-440); RED BLOOD COUNT 4.47 X10'6 (4.20-5.60); RED CELL DISTRIBUTION WIDTH 13.1 % (11.5-14.5); WHITE BLOOD COUNT 7.3 X10'3 (4.5-11.0)
[2022-11-01 20:06] LABS: ALANINE AMINOTRANSFERASE 33 U/L (12-78); ALBUMIN 3.6 G/DL (3.4-5.0); ALBUMIN/GLOBULIN RATIO 1.1 (1.1-1.5); ALKALINE PHOSPHATASE 46 IU/L (46-116); ANION GAP 6 (8-16); ASPARTATE AMINO TRANSFERASE 25 U/L (10-37); BILIRUBIN,TOTAL 0.2 MG/DL (0.1-1.0); BLOOD UREA NITROGEN 18 MG/DL (7-18); BUN/CREATININE RATIO 32.7 (6.6-38.0); CALCIUM 9.2 MG/DL (8.5-10.1); CHLORIDE 103 MMOL/L (99-107); CREATININE 0.55 MG/DL (0.40-0.90); GLUCOSE 88 MG/DL (70-104); MAGNESIUM 2.4 MG/DL (1.5-2.4); SODIUM 137 MMOL/L (135-145); TOTAL CARBON DIOXIDE 28.3 MMOL/L (24-32); TOTAL PROTEIN 6.9 G/DL (6.4-8.2); eGFR > 90 ML/MIN
--- NOTE | 2022-11-01 20:36 | NUR ---
I agree with A Alanna Harvey assessment.
[2022-11-01 22:22] VITALS: BP 155/72
== END 2022-11-01 22:25 | disposition home or self-care (01) ==
LOC: ER 18:17
DX: R42 Dizziness and giddiness (principal); I11.0 Hypertensive heart disease with heart failure; I50.9 Heart failure, unspecified; K21.9 Gastro-esophageal reflux disease without esophagitis; E03.9 Hypothyroidism, unspecified; Z88.1 Allergy status to other antibiotic agents; Z88.5 Allergy status to narcotic agent; Z88.6 Allergy status to analgesic agent; Z88.8 Allergy status to other drugs, medicaments and biological substances; Z91.09 Other allergy status, other than to drugs and biological substances; Z90.49 Acquired absence of other specified parts of digestive tract
CPT/HCPCS: 36415; 70450; 80053; 83735; 84443; 84484; 85025; 93005; 96360; 96361; 99285; J7030

== ENCOUNTER 2023-03-21 09:00 | Emergency (ER) | payer MEDICARE, MEDICAID ==
[~2023-03-21] VITALS: Ht 162.6 cm; Wt 100.0 kg
[2023-03-21 09:20] LABS: BASOPHILS # (AUTO) 0.1 X10'3 (0-0.2); BASOPHILS % (AUTO) 0.8 % (0-1); EOSINOPHILS # (AUTO) 0.2 X10'3 (0-0.9); EOSINOPHILS % (AUTO) 2.4 % (0-6); HEMATOCRIT 44.2 % (35.0-45.0); HEMOGLOBIN 15.1 g/dl (12.0-16.0); LYMPHOCYTES # (AUTO) 1.7 X10'3 (1.1-4.8); LYMPHOCYTES % (AUTO) 25.4 % (21-51); MEAN CORPUSCULAR HEMOGLOBIN 30.8 PG (27.0-31.0); MEAN CORPUSCULAR HGB CONC 34.3 g/dL (33.0-36.5); MEAN CORPUSCULAR VOLUME 89.9 FL (78-98); MEAN PLATELET VOLUME 7.1 FL (7.4-10.4); MONOCYTES # (AUTO) 0.4 X10'3 (0-0.9); MONOCYTES % (AUTO) 6.4 % (2-12); NEUTROPHILS # (AUTO) 4.3 X10'3 (1.8-7.7); PLATELET COUNT 237 X10'3 (140-440); RED BLOOD COUNT 4.91 X10'6 (4.20-5.60); RED CELL DISTRIBUTION WIDTH 13.6 % (11.5-14.5); WHITE BLOOD COUNT 6.6 X10'3 (4.5-11.0)
[2023-03-21 09:42] LABS: ALANINE AMINOTRANSFERASE 17 U/L (12-78); ALBUMIN/GLOBULIN RATIO 1.2 (1.1-1.5); ALKALINE PHOSPHATASE 48 IU/L (46-116); ANION GAP 6 (8-16); ASPARTATE AMINO TRANSFERASE 15 U/L (10-37); BILIRUBIN,TOTAL 0.4 MG/DL (0.1-1.0); BLOOD UREA NITROGEN 14 MG/DL (7-18); BUN/CREATININE RATIO 29.8 (10.0-20.0); CALCIUM 9.5 MG/DL (8.5-10.1); CHLORIDE 103 MMOL/L (99-107); CREATININE 0.47 MG/DL (0.40-0.90); GLUCOSE 104 MG/DL (70-104); MAGNESIUM 2.1 MG/DL (1.5-2.4); POTASSIUM 3.9 MMOL/L (3.5-5.1); SODIUM 140 MMOL/L (135-145); TOTAL CARBON DIOXIDE 31.3 MMOL/L (24-32); TOTAL PROTEIN 7.4 G/DL (6.4-8.2); eGFR > 90 ML/MIN
[2023-03-21 11:08] VITALS: BP 128/54
== END 2023-03-21 12:07 | disposition home or self-care (01) ==
LOC: ER 09:00
DX: R07.9 Chest pain, unspecified (principal); R20.0 Anesthesia of skin; M79.602 Pain in left arm; I11.9 Hypertensive heart disease without heart failure; J44.9 Chronic obstructive pulmonary disease, unspecified; K21.9 Gastro-esophageal reflux disease without esophagitis; E07.9 Disorder of thyroid, unspecified; Z88.1 Allergy status to other antibiotic agents; Z88.8 Allergy status to other drugs, medicaments and biological substances; Z88.6 Allergy status to analgesic agent; Z88.2 Allergy status to sulfonamides; Z79.899 Other long term (current) drug therapy
CPT/HCPCS: 36415; 71045; 80053; 83735; 83880; 84484; 85025; 93005; 99285

== ENCOUNTER 2023-03-25 21:13 | Observation (INO) | payer MEDICARE, MEDICAID ==
[~2023-03-25] VITALS: Ht 162.6 cm; Wt 101.4 kg
[2023-03-25 21:44] LABS: BASOPHILS # (AUTO) 0.1 X10'3 (0-0.2); BASOPHILS % (AUTO) 0.9 % (0-1); EOSINOPHILS # (AUTO) 0.3 X10'3 (0-0.9); EOSINOPHILS % (AUTO) 4.6 % (0-6); HEMATOCRIT 38.2 % (35.0-45.0); HEMOGLOBIN 13.2 g/dl (12.0-16.0); LYMPHOCYTES # (AUTO) 2.5 X10'3 (1.1-4.8); LYMPHOCYTES % (AUTO) 35.7 % (21-51); MEAN CORPUSCULAR HGB CONC 34.7 g/dL (33.0-36.5); MEAN CORPUSCULAR VOLUME 89.3 FL (78-98); MEAN PLATELET VOLUME 7.1 FL (7.4-10.4); MONOCYTES # (AUTO) 0.4 X10'3 (0-0.9); MONOCYTES % (AUTO) 5.9 % (2-12); NEUTROPHILS # (AUTO) 3.8 X10'3 (1.8-7.7); NEUTROPHILS % (AUTO) 52.9 % (42-75); PLATELET COUNT 236 X10'3 (140-440); RED BLOOD COUNT 4.28 X10'6 (4.20-5.60); RED CELL DISTRIBUTION WIDTH 13.7 % (11.5-14.5); WHITE BLOOD COUNT 7.1 X10'3 (4.5-11.0)
[2023-03-25 21:54] LABS: ALANINE AMINOTRANSFERASE 18 U/L (12-78); ALBUMIN 3.8 G/DL (3.4-5.0); ALBUMIN/GLOBULIN RATIO 1.3 (1.1-1.5); ALKALINE PHOSPHATASE 52 IU/L (46-116); ANION GAP 5 (8-16); ASPARTATE AMINO TRANSFERASE 13 U/L (10-37); BILIRUBIN,TOTAL 0.3 MG/DL (0.1-1.0); BLOOD UREA NITROGEN 16 MG/DL (7-18); BUN/CREATININE RATIO 32.7 (10.0-20.0); CALCIUM 9.1 MG/DL (8.5-10.1); CHLORIDE 103 MMOL/L (99-107); CREATININE 0.49 MG/DL (0.40-0.90); GLUCOSE 94 MG/DL (70-104); POTASSIUM 3.6 MMOL/L (3.5-5.1); SODIUM 139 MMOL/L (135-145); TOTAL CARBON DIOXIDE 30.9 MMOL/L (24-32); TOTAL PROTEIN 6.8 G/DL (6.4-8.2); eGFR > 90 ML/MIN
[2023-03-25] MEDS ORDERED: iohexol 350MG/ML 100ml bottle IV ONE (23:02)
[2023-03-26] MEDS ORDERED: ASPI-1265 PO (01:49)
[2023-03-26] MEDS ORDERED: potassium Cl 40MEQ/1/2NS 520ml 520 ML IV PRN (01:50)
[2023-03-26] MEDS ORDERED: magnesium hydroxide 30ml (MOM) UD suspension PO PRN (01:50)
[2023-03-26] MEDS ORDERED: ondansetron/PF 4mg/2ml inj IV PRN (01:50)
[2023-03-26] MEDS ORDERED: magnesium 4gm in 100ml NS 100 ML IV PRN (01:50)
[2023-03-26] MEDS ORDERED: mag hydrox/Alum hydrox/simeth 30ml oral suspension PO PRN (01:50)
[2023-03-26] MEDS ORDERED: magnesium 2GM in 50ml NS 50 ML IV PRN (01:50)
[2023-03-26] MEDS ORDERED: acetaminophen 325mg tablet PO PRN (01:50)
[2023-03-26] MEDS ORDERED: magnesium Cl slow-release 64mg tablet PO PRN (01:50)
[2023-03-26] MEDS ORDERED: potassium Cl 20 mEq SR tablet PO PRN ×2 (01:50)
[2023-03-26] MEDS ORDERED: furosemide 20MG tablet PO PRN (01:55)
[2023-03-26] MEDS: acetaminophen 325mg tablet PO SCH ×2 (01:58→08:50)
[2023-03-26] MEDS: ipratropium/albuterol 3ml nebule NEB SCH ×2 (02:36→07:29)
[2023-03-26 05:00] VITALS: BP 131/61
--- NOTE | 2023-03-26 05:00 | NUR ---
RECEIVED PT FROM ER VIA [facility] FOLLOWING VERBAL REPORT FROM CASEY
[2023-03-26 06:00] VITALS: BP 135/46
--- NOTE | 2023-03-26 06:30 | NUR ---
Problems reprioritized. Patient report given, questions answered & plan of care reviewed with
--- NOTE | 2023-03-26 06:47 | NUR ---
Patient in room PCU 3018. I have received report from bernardino GUZMAN and had the opportunity to ask questions and assume patient care.
[2023-03-26 07:16] LABS: MAGNESIUM 2.1 MG/DL (1.5-2.4); POTASSIUM 3.4 MMOL/L (3.5-5.1)
[2023-03-26] MEDS ORDERED: levoTHYROXINE 125mcg tablet PO SCH (07:30)
[2023-03-26] MEDS ORDERED: heparin, porcine 5000 units/ml vial SQ SCH (08:00)
[2023-03-26] MEDS ORDERED: lisinopril 10 MG tablet PO SCH (08:00)
[2023-03-26] MEDS ORDERED: K and/or MAG REPLACEMENT MC SCH (08:00)
[2023-03-26] MEDS ORDERED: aspirin 81mg tab.chew PO SCH (08:00)
[2023-03-26] MEDS ORDERED: docusate sod 100mg capsule PO SCH (08:00)
[2023-03-26] MEDS: HYDROchlorothiazide 12.5mg capsule PO SCH ×2 (08:00→08:48)
[2023-03-26] MEDS ORDERED: PERFLUTREN PROTEIN-A MICROSPHR (Optison) 0.22 MG/ML 3ML VIAL IV ONE (08:20)
[2023-03-26 09:19] LABS: HEMOGLOBIN A1C 5.3 % (4.5-6.2)
[2023-03-26 09:26] LABS: CHOL/HDL RATIO 3.6 (0.00-4.99); CHOLESTEROL 158 MG/DL (0-200); HDL CHOLESTEROL 44 MG/DL (35-60); LDL CHOLESTEROL 87 MG/DL (50-100); TRIGLYCERIDES 135 MG/DL (20-135)
[2023-03-26 10:00] VITALS: BP 141/71
[2023-03-26] MEDS ORDERED: meclizine 12.5mg tablet PO PRN (11:25)
[2023-03-26] MEDS ORDERED: normal saline 1000ml 1,000 ML IV ONE (11:25)
[2023-03-26 12:02] LABS: CLARITY,URINE CLOUDY (Clear); COLOR,URINE YELLOW (Yellow); GLUCOSE, URINE NEGATIVE (Neg); KETONES,URINE 15 mg/dl (Neg); LEUKOCYTE ESTERASE ,URINE NEGATIVE (Neg); NITRITES, URINE NEGATIVE (Neg); OCCULT BLOOD,URINE NEGATIVE (Neg); PROTEIN,URINE NEGATIVE (Neg); UROBILINOGEN,URINE 0.2 E.U/dL (0.2-1.0)
[2023-03-26 12:03] LABS: UA COLLECTION TYPE VOIDED
[2023-03-26 12:20] LABS: MUCUS STRANDS MODERATE /LPF (Neg); SQUAMOUS EPITHELIAL CELL,UR MODERATE /LPF (FEW)
[2023-03-26 12:21] LABS: BACTERIA,URINE FEW /HPF (Neg); RBC,URINE 0-2 /HPF (0-2); WBC,URINE 0-4 /HPF (0-4)
[2023-03-26] MEDS ORDERED: MECL-226 PO (12:52)
[2023-03-26] MEDS ORDERED: POTA-207 PO (12:52)
--- NOTE | 2023-03-26 13:39 | NUR ---
patient went for MRI/MRA, carotid studies and Echo done. 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 Dr Pierre into see patient. Patient is for DC. All Dc instructions given to patient. Patient discharged from floor , taken to Lobby where she wanted to wait for friend to pick her up in stable condition.
== END 2023-03-26 13:45 | disposition home or self-care (01) ==
LOC: ER 21:13 → ED HOLD 03-26 01:51 → PCU 3S 03-26 05:00
PROVIDERS: ADMIT Internal Medicine; ATTEND Family Medicine
DX: R42 Dizziness and giddiness (principal); I11.0 Hypertensive heart disease with heart failure; I50.9 Heart failure, unspecified; E03.9 Hypothyroidism, unspecified; J44.9 Chronic obstructive pulmonary disease, unspecified; R13.10 Dysphagia, unspecified; Z88.6 Allergy status to analgesic agent; Z87.891 Personal history of nicotine dependence; Z79.899 Other long term (current) drug therapy; R29.700 NIHSS score 0
CPT/HCPCS: 36415; 70450; 71045; 80053; 80061; 81001; 83036; 83735; 83880; 84132; 84443; 84484; 85025; 92508; 92616; 93005; 93306; 93880; 94640; 94760; 96372; 97161; 97530; 99285; G0378; J1644; J7030; Q9967

== ENCOUNTER 2023-09-17 12:12 | Emergency (ER) | payer MEDICARE, MEDICAID ==
[~2023-09-17] VITALS: Ht 162.6 cm; Wt 106.8 kg
[~2023-09-17 12:12] MED LIST changes: +ASPI-1265 PO; -BIO COMPLETE PO; -DICY10CA88 PO; -LISI-643 PO; +MECL-226 PO; +MECL-231 PO; -MULT-1085 PO; -PSYL575P22 PO; -[UNRECOGNIZED DRUG - OTHER] PO
[2023-09-17 12:16] VITALS: BP 167/66; PULSE 79; RESP 18; TEMP 98.5; O2SAT 99
[2023-09-17 13:19] LABS: BILIRUBIN,URINE NEGATIVE (Neg); CLARITY,URINE SLIGHTLY CLOUDY (Clear); COLOR,URINE YELLOW (Yellow); GLUCOSE, URINE NEGATIVE (Neg); KETONES,URINE NEGATIVE (Neg); LEUKOCYTE ESTERASE ,URINE NEGATIVE (Neg); NITRITES, URINE NEGATIVE (Neg); OCCULT BLOOD,URINE NEGATIVE (Neg); PROTEIN,URINE NEGATIVE (Neg); UROBILINOGEN,URINE 0.2 E.U/dL (0.2-1.0)
[2023-09-17 13:22] LABS: UA COLLECTION TYPE CLN CATCH MIDSTREAM
[2023-09-17 13:27] LABS: BACTERIA,URINE FEW /HPF (Neg); MUCUS STRANDS FEW /LPF (Neg); RBC,URINE 0-2 /HPF (0-2); SQUAMOUS EPITHELIAL CELL,UR FEW /LPF (FEW); WBC,URINE 0-4 /HPF (0-4)
[2023-09-17 13:54] LABS: BASOPHILS # (AUTO) 0.1 X10'3 (0-0.2); BASOPHILS % (AUTO) 1.8 % (0-1); EOSINOPHILS # (AUTO) 0.6 X10'3 (0-0.9); EOSINOPHILS % (AUTO) 9.6 % (0-6); HEMATOCRIT 39.9 % (35.0-45.0); HEMOGLOBIN 13.4 g/dl (12.0-16.0); LYMPHOCYTES # (AUTO) 1.8 X10'3 (1.1-4.8); MEAN CORPUSCULAR HEMOGLOBIN 30.2 PG (27.0-31.0); MEAN CORPUSCULAR HGB CONC 33.6 g/dL (33.0-36.5); MEAN CORPUSCULAR VOLUME 89.8 FL (78-98); MEAN PLATELET VOLUME 7.5 FL (7.4-10.4); MONOCYTES # (AUTO) 0.3 X10'3 (0-0.9); MONOCYTES % (AUTO) 5.2 % (2-12); NEUTROPHILS # (AUTO) 3.7 X10'3 (1.8-7.7); NEUTROPHILS % (AUTO) 56.4 % (42-75); PLATELET COUNT 270 X10'3 (140-440); RED BLOOD COUNT 4.44 X10'6 (4.20-5.60); RED CELL DISTRIBUTION WIDTH 13.3 % (11.5-14.5); WHITE BLOOD COUNT 6.5 X10'3 (4.5-11.0)
[2023-09-17 14:13] LABS: ALANINE AMINOTRANSFERASE 19 U/L (12-78); ALBUMIN 3.6 G/DL (3.4-5.0); ALBUMIN/GLOBULIN RATIO 1.1 (1.1-1.5); ALKALINE PHOSPHATASE 48 IU/L (46-116); AMYLASE 31 U/L (25-115); ANION GAP 3 (8-16); ASPARTATE AMINO TRANSFERASE 16 U/L (10-37); BILIRUBIN,TOTAL 0.3 MG/DL (0.1-1.0); BLOOD UREA NITROGEN 9 MG/DL (7-18); BUN/CREATININE RATIO 13.4 (10.0-20.0); CALCIUM 9.6 MG/DL (8.5-10.1); CHLORIDE 102 MMOL/L (99-107); CREATININE 0.67 MG/DL (0.40-0.90); GLUCOSE 95 MG/DL (70-104); LIPASE 17 U/L (16-77); POTASSIUM 3.6 MMOL/L (3.5-5.1); SODIUM 137 MMOL/L (135-145); TOTAL CARBON DIOXIDE 32.2 MMOL/L (24-32); TOTAL PROTEIN 6.9 G/DL (6.4-8.2); eCRCL 74 ML/MIN; eGFR 89 ML/MIN
--- NOTE | 2023-09-17 15:59 | NUR ---
pt told registration she was leaving
== END 2023-09-17 16:02 | disposition left against medical advice (07) ==
LOC: ER 12:13
DX: N30.90 Cystitis, unspecified without hematuria (principal); R05.9 Cough, unspecified; R07.89 Other chest pain; Z53.21 Procedure and treatment not carried out due to patient leaving prior to being seen by health care provider
CPT/HCPCS: 36415; 80053; 81001; 82150; 83690; 85025; 99281

== ENCOUNTER 2023-11-29 16:13 | Emergency (ER) | payer MEDICARE, MEDICAID ==
[~2023-11-29] VITALS: Ht 158.8 cm; Wt 105.8 kg
[2023-11-29] MEDS ORDERED: CEPH-585 PO (17:04)
[2023-11-29 17:27] VITALS: BP 118/68; PULSE 74; RESP 16; TEMP 97.5; O2SAT 97
== END 2023-11-29 17:29 | disposition home or self-care (01) ==
LOC: ER 16:14
DX: S00.81XA Abrasion of other part of head, initial encounter (principal); S60.811A Abrasion of right wrist, initial encounter; W18.39XA Other fall on same level, initial encounter; Y93.89 Activity, other specified; Y92.89 Other specified places as the place of occurrence of the external cause; Y99.8 Other external cause status
CPT/HCPCS: 73110; 99283

== ENCOUNTER 2024-02-26 07:24 | Emergency (ER) | payer MEDICARE, MEDICAID ==
[~2024-02-26] VITALS: Ht 162.6 cm; Wt 105.1 kg
[2024-02-26 07:30] VITALS: TEMP 97.6
[2024-02-26 08:21] LABS: BASOPHILS # (AUTO) 0.1 X10'3 (0-0.2); BASOPHILS % (AUTO) 1.3 % (0-1); EOSINOPHILS # (AUTO) 0.3 X10'3 (0-0.9); EOSINOPHILS % (AUTO) 4.2 % (0-6); HEMATOCRIT 41.7 % (35.0-45.0); HEMOGLOBIN 14.2 g/dl (12.0-16.0); LYMPHOCYTES # (AUTO) 1.7 X10'3 (1.1-4.8); LYMPHOCYTES % (AUTO) 27.9 % (21-51); MEAN CORPUSCULAR HEMOGLOBIN 30.5 PG (27.0-31.0); MEAN CORPUSCULAR HGB CONC 34.1 g/dL (33.0-36.5); MEAN CORPUSCULAR VOLUME 89.5 FL (78-98); MEAN PLATELET VOLUME 7.3 FL (7.4-10.4); MONOCYTES # (AUTO) 0.4 X10'3 (0-0.9); MONOCYTES % (AUTO) 6.9 % (2-12); NEUTROPHILS # (AUTO) 3.7 X10'3 (1.8-7.7); NEUTROPHILS % (AUTO) 59.7 % (42-75); PLATELET COUNT 273 X10'3 (140-440); RED BLOOD COUNT 4.65 X10'6 (4.20-5.60); RED CELL DISTRIBUTION WIDTH 13.5 % (11.5-14.5); WHITE BLOOD COUNT 6.2 X10'3 (4.5-11.0)
[2024-02-26] MEDS: normal saline 1000ML IV soln IVB ONE (08:24)
[2024-02-26 08:25] VITALS: BP 126/65; PULSE 66; RESP 18; O2SAT 99
[2024-02-26 08:28] LABS: ALBUMIN 3.6 G/DL (3.4-5.0); ANION GAP 5 (8-16); BLOOD UREA NITROGEN 8 MG/DL (7-18); BUN/CREATININE RATIO 15.1 (10.0-20.0); CHLORIDE 103 MMOL/L (99-107); CREATININE 0.53 MG/DL (0.40-0.90); GLUCOSE 99 MG/DL (70-104); LIPASE 18 U/L (16-77); MAGNESIUM 2.2 MG/DL (1.5-2.4); POTASSIUM 3.4 MMOL/L (3.5-5.1); SODIUM 140 MMOL/L (135-145); TOTAL CARBON DIOXIDE 32.5 MMOL/L (24-32); eCRCL 94 ML/MIN; eGFR > 90 ML/MIN
[2024-02-26] MEDS ORDERED: METR-159 PO (09:10)
[2024-02-26] MEDS: metroNIDAZOLE 500mg tablet PO ONE (09:18)
== END 2024-02-26 09:26 | disposition home or self-care (01) ==
LOC: ER 07:25
DX: K57.92 Diverticulitis of intestine, part unspecified, without perforation or abscess without bleeding (principal); I11.0 Hypertensive heart disease with heart failure; I50.9 Heart failure, unspecified; J45.909 Unspecified asthma, uncomplicated; J44.9 Chronic obstructive pulmonary disease, unspecified; K21.9 Gastro-esophageal reflux disease without esophagitis; E03.9 Hypothyroidism, unspecified; Z88.8 Allergy status to other drugs, medicaments and biological substances; Z91.041 Radiographic dye allergy status
CPT/HCPCS: 36415; 74176; 80048; 83690; 83735; 85025; 96360; 99284; J7030

== ENCOUNTER 2024-06-22 07:41 | Day surgery (SDC) | payer MEDICARE, MEDICAID ==
[~2024-06-22] VITALS: Ht 154.9 cm; Wt 108.6 kg
[~2024-06-22 07:41] MED LIST changes: +AMLO-708 PO; +ESTR42.510; +HYDR12.55; -IPRA4AER IH; +LANS30CA56 PO; +LISI-644 PO; -LISI1TAB49 PO; -MECL-226 PO
[2024-06-22 08:00] VITALS: BP 139/50; PULSE 73; RESP 15
[2024-06-22] MEDS ORDERED: rocuronium 10mg/ml inj IV ONE (08:07)
[2024-06-22] MEDS ORDERED: propofol inj 20 ML IV ONE (08:32)
[2024-06-22] MEDS ORDERED: fentaNYL/PF 50MCG/1 ML 2ML syringe ONE (08:32)
[2024-06-22] MEDS ORDERED: MIDAZolam 1mg/ml 10ml vial ONE (08:32)
[2024-06-22 08:40] VITALS: BP 112/54; PULSE 62; RESP 13; O2SAT 98
[2024-06-22 08:50] VITALS: BP 128/65; PULSE 63; RESP 15; O2SAT 97
[2024-06-22 09:00] VITALS: BP 142/77; PULSE 65; RESP 14; O2SAT 98
[2024-06-22 09:10] VITALS: BP 150/83; PULSE 62; RESP 14; O2SAT 98
== END 2024-06-22 09:15 | disposition home or self-care (01) ==
LOC: GI LAB 07:41
PROVIDERS: ATTEND Internal Medicine Gastroenterology
DX: R10.9 Unspecified abdominal pain (principal); K57.30 Diverticulosis of large intestine without perforation or abscess without bleeding; K29.50 Unspecified chronic gastritis without bleeding; K31.A0 Gastric intestinal metaplasia, unspecified; K31.89 Other diseases of stomach and duodenum; K30 Functional dyspepsia; I11.0 Hypertensive heart disease with heart failure; I50.9 Heart failure, unspecified; E11.9 Type 2 diabetes mellitus without complications; J45.909 Unspecified asthma, uncomplicated
CPT/HCPCS: 43239; 45378; A4620; J2250; J2704; J3010; J3490; J7120; Z7512; 88305; 88342

== ENCOUNTER 2024-08-03 02:31 | Emergency (ER) | payer MEDICARE, MEDICAID ==
[~2024-08-03] VITALS: Ht 162.6 cm; Wt 107.3 kg
[2024-08-03 02:55] LABS: BASOPHILS # (AUTO) 0.1 X10'3 (0-0.2); EOSINOPHILS # (AUTO) 0.2 X10'3 (0-0.9); EOSINOPHILS % (AUTO) 3.2 % (0-6); HEMATOCRIT 40.9 % (35.0-45.0); HEMOGLOBIN 13.5 g/dl (12.0-16.0); LYMPHOCYTES # (AUTO) 2.3 X10'3 (1.1-4.8); LYMPHOCYTES % (AUTO) 29.5 % (21-51); MEAN CORPUSCULAR HEMOGLOBIN 29.7 PG (27.0-31.0); MEAN CORPUSCULAR HGB CONC 33.1 g/dL (33.0-36.5); MEAN CORPUSCULAR VOLUME 89.7 FL (78-98); MEAN PLATELET VOLUME 7.4 FL (7.4-10.4); MONOCYTES # (AUTO) 0.5 X10'3 (0-0.9); MONOCYTES % (AUTO) 6.6 % (2-12); NEUTROPHILS # (AUTO) 4.6 X10'3 (1.8-7.7); NEUTROPHILS % (AUTO) 59.7 % (42-75); PLATELET COUNT 256 X10'3 (140-440); RED BLOOD COUNT 4.56 X10'6 (4.20-5.60); RED CELL DISTRIBUTION WIDTH 14.1 % (11.5-14.5); WHITE BLOOD COUNT 7.7 X10'3 (4.5-11.0)
[2024-08-03 03:13] LABS: ALBUMIN 3.8 G/DL (3.4-5.0); ANION GAP 5 (8-16); BLOOD UREA NITROGEN 13 MG/DL (7-18); CALCIUM 9.3 MG/DL (8.5-10.1); CHLORIDE 103 MMOL/L (99-107); CREATININE 0.52 MG/DL (0.40-0.90); GLUCOSE 101 MG/DL (70-104); MAGNESIUM 2.2 MG/DL (1.5-2.4); POTASSIUM 4.2 MMOL/L (3.5-5.1); PRO BRAIN NATRIURETIC PEPTIDE < 30 PG/ML (0-125); SODIUM 139 MMOL/L (135-145); TOTAL CARBON DIOXIDE 30.6 MMOL/L (24-32); eCRCL 94 ML/MIN; eGFR > 90 ML/MIN
[2024-08-03 04:04] VITALS: BP 168/85; PULSE 66; RESP 17; TEMP 98.4; O2SAT 99
== END 2024-08-03 04:14 | disposition home or self-care (01) ==
LOC: ER 02:32
DX: R07.9 Chest pain, unspecified (principal); R06.02 Shortness of breath; R42 Dizziness and giddiness; H53.8 Other visual disturbances; I11.0 Hypertensive heart disease with heart failure; I50.9 Heart failure, unspecified; J44.9 Chronic obstructive pulmonary disease, unspecified; J45.909 Unspecified asthma, uncomplicated; K21.9 Gastro-esophageal reflux disease without esophagitis; E03.9 Hypothyroidism, unspecified; Z98.890 Other specified postprocedural states; Z90.49 Acquired absence of other specified parts of digestive tract; Z88.8 Allergy status to other drugs, medicaments and biological substances; Z88.1 Allergy status to other antibiotic agents; Z88.5 Allergy status to narcotic agent; Z91.048 Other nonmedicinal substance allergy status; Z79.1 Long term (current) use of non-steroidal anti-inflammatories (NSAID); Z79.82 Long term (current) use of aspirin; Z79.899 Other long term (current) drug therapy
CPT/HCPCS: 36415; 71045; 80048; 83735; 83880; 84484; 85025; 93005; 99285

== ENCOUNTER 2024-08-14 19:24 | Emergency (ER) | payer MEDICARE, MEDICAID ==
[~2024-08-14] VITALS: Ht 154.9 cm; Wt 97.9 kg
[2024-08-14 20:05] LABS: BASOPHILS % (AUTO) 0.7 % (0-1); EOSINOPHILS # (AUTO) 0.2 X10'3 (0-0.9); EOSINOPHILS % (AUTO) 2.7 % (0-6); HEMATOCRIT 40.5 % (35.0-45.0); HEMOGLOBIN 13.5 g/dl (12.0-16.0); LYMPHOCYTES # (AUTO) 2.3 X10'3 (1.1-4.8); LYMPHOCYTES % (AUTO) 37.2 % (21-51); MEAN CORPUSCULAR HEMOGLOBIN 29.9 PG (27.0-31.0); MEAN CORPUSCULAR HGB CONC 33.5 g/dL (33.0-36.5); MEAN CORPUSCULAR VOLUME 89.4 FL (78-98); MEAN PLATELET VOLUME 6.9 FL (7.4-10.4); MONOCYTES # (AUTO) 0.4 X10'3 (0-0.9); MONOCYTES % (AUTO) 6.3 % (2-12); NEUTROPHILS # (AUTO) 3.3 X10'3 (1.8-7.7); NEUTROPHILS % (AUTO) 53.1 % (42-75); PLATELET COUNT 258 X10'3 (140-440); RED BLOOD COUNT 4.53 X10'6 (4.20-5.60); RED CELL DISTRIBUTION WIDTH 13.6 % (11.5-14.5); WHITE BLOOD COUNT 6.2 X10'3 (4.5-11.0)
[2024-08-14 20:34] LABS: ALBUMIN 3.9 G/DL (3.4-5.0); ANION GAP 6 (8-16); BLOOD UREA NITROGEN 13 MG/DL (7-18); CALCIUM 9.1 MG/DL (8.5-10.1); CHLORIDE 100 MMOL/L (99-107); GLUCOSE 91 MG/DL (70-104); PRO BRAIN NATRIURETIC PEPTIDE < 30 PG/ML (0-125); SODIUM 136 MMOL/L (135-145); eCRCL 86 ML/MIN; eGFR > 90 ML/MIN
[2024-08-14 21:17] LABS: BILIRUBIN,URINE NEGATIVE (Neg); CLARITY,URINE CLEAR (Clear); COLOR,URINE STRAW (Yellow); GLUCOSE, URINE NEGATIVE (Neg); KETONES,URINE NEGATIVE (Neg); LEUKOCYTE ESTERASE ,URINE NEGATIVE (Neg); NITRITES, URINE NEGATIVE (Neg); OCCULT BLOOD,URINE NEGATIVE (Neg); PROTEIN,URINE NEGATIVE (Neg); UROBILINOGEN,URINE 0.2 E.U/dL (0.2-1.0)
[2024-08-14 21:21] LABS: UA COLLECTION TYPE CLN CATCH MIDSTREAM
[2024-08-14 22:34] LABS: THYROID STIMULATING HORMONE 4.38 ulU/ml (0.34-4.50)
[2024-08-14] MEDS ORDERED: LORA-269 PO (23:28)
[2024-08-15 00:21] VITALS: BP 126/53; PULSE 68; RESP 15; TEMP 97.9; O2SAT 100
== END 2024-08-15 00:46 | disposition home or self-care (01) ==
LOC: ER 19:24
DX: I11.0 Hypertensive heart disease with heart failure (principal); I50.9 Heart failure, unspecified; F41.9 Anxiety disorder, unspecified; J44.9 Chronic obstructive pulmonary disease, unspecified; J45.909 Unspecified asthma, uncomplicated; K21.9 Gastro-esophageal reflux disease without esophagitis; E03.9 Hypothyroidism, unspecified; M54.2 Cervicalgia; Z90.49 Acquired absence of other specified parts of digestive tract; Z98.890 Other specified postprocedural states; Z88.8 Allergy status to other drugs, medicaments and biological substances; Z88.1 Allergy status to other antibiotic agents; Z91.048 Other nonmedicinal substance allergy status; Z79.899 Other long term (current) drug therapy; Z79.1 Long term (current) use of non-steroidal anti-inflammatories (NSAID); Z79.82 Long term (current) use of aspirin
CPT/HCPCS: 36415; 70450; 80048; 81003; 83880; 84443; 84484; 85025; 93005; 99284